=== PATIENT | female | born 1945 | race Caucasian/White ===

== ENCOUNTER → 2022-03-16 | Outpatient (CLI) | payer OTHER | END | disposition home or self-care (01) | LOC: RESCLI 09:20 | PROVIDERS: ATTEND Internal Medicine | DX: I10 Essential (primary) hypertension (principal); E78.00 Pure hypercholesterolemia, unspecified; G62.9 Polyneuropathy, unspecified; I73.9 Peripheral vascular disease, unspecified; I48.91 Unspecified atrial fibrillation; F32.9 Major depressive disorder, single episode, unspecified; F41.9 Anxiety disorder, unspecified; G47.33 Obstructive sleep apnea (adult) (pediatric); M10.9 Gout, unspecified; K21.9 Gastro-esophageal reflux disease without esophagitis; E83.42 Hypomagnesemia; E03.9 Hypothyroidism, unspecified; H40.9 Unspecified glaucoma; Z90.710 Acquired absence of both cervix and uterus; Z87.891 Personal history of nicotine dependence; Z79.899 Other long term (current) drug therapy; Z79.82 Long term (current) use of aspirin; Z79.01 Long term (current) use of anticoagulants ==

== ENCOUNTER → 2023-04-12 | Outpatient (CLI) | payer OTHER | END | disposition home or self-care (01) | LOC: RESCLI 01:26 | PROVIDERS: ATTEND Internal Medicine | DX: I48.91 Unspecified atrial fibrillation (principal); G62.9 Polyneuropathy, unspecified; K21.9 Gastro-esophageal reflux disease without esophagitis; F41.9 Anxiety disorder, unspecified; E78.00 Pure hypercholesterolemia, unspecified; M10.9 Gout, unspecified; F32.9 Major depressive disorder, single episode, unspecified; H40.9 Unspecified glaucoma; I73.9 Peripheral vascular disease, unspecified; E55.9 Vitamin D deficiency, unspecified; N95.2 Postmenopausal atrophic vaginitis; Z87.891 Personal history of nicotine dependence; Z82.49 Family history of ischemic heart disease and other diseases of the circulatory system; Z98.890 Other specified postprocedural states; Z79.899 Other long term (current) drug therapy ==